=== PATIENT | male | born 1930 | race Caucasian/White ===

== ENCOUNTER 2016-12-06 10:13 | Observation (INO) | payer MEDICARE ==
[2016-12-06 10:51] LABS: Hematocrit 35 % (42-52); Hemoglobin 11.8 g/dl (14.0-18.0); Mean Corpuscular HGB Conc 33 g/dl (31-36); Mean Corpuscular Hemoglobin 33 pg (27-31); Mean Corpuscular Volume 101 fL (80-94); Mean Platelet Volume 8 um3 (7.4-10.4); Red Blood Count 3.52 10^6/ul (4.0-5.4); Red Cell Distribution Width 17 % (10.5-15); White Blood Count 7.2 10^3/ul (3.5-10.8)
[2016-12-06 11:07] LABS: BUN/Creatinine Ratio 21.3 (8-20); Calcium 8.7 mg/dL (8.6-10.3); EGFR African American 69.2 (>60); EGFR Non-African American 53.8 (>60); Potassium 4.8 mmol/L (3.5-5.0)
[2016-12-06] MEDS ORDERED: fentaNYL* 50 MCG/ML 2 ML VIAL (100 MCG VIAL) ONE (11:13)
[2016-12-06] MEDS ORDERED: nitroGLYCERIN DRIP* 250 ML ONE (11:14)
[2016-12-06] MEDS ORDERED: Heparin 2 UNITS/ML IVPREMIX* 3,000 ML IV ONE (11:14)
[2016-12-06] MEDS ORDERED: Lidocaine 1% INJ* 10 MG/ML 30 ML SDV ONE (11:14)
[2016-12-06] MEDS ORDERED: Heparin(*) 1000 UNIT/ML 10 ML VIAL CATH LAB IV ONE (11:14)
[2016-12-06] MEDS ORDERED: Midazolam* 1 MG/ML 5 ML VIAL (5 MG) ONE (11:14)
[2016-12-06] MEDS ORDERED: VERAPAMIL 2.5 MG/ML 4 ML VIAL ONE (11:14)
[2016-12-06] MEDS ORDERED: Iohexol 350 (CONTRAST) 200 ML MDV IV ONE (11:15)
[2016-12-06] MEDS ORDERED: Iodixanol* (CONTRAST) 320 MG/ML 100 ML SDV ONE ×3 (11:31→12:27)
[2016-12-06] MEDS ORDERED: Heparin 2 UNITS/ML IVPREMIX* 1,000 ML IV ONE (11:37)
[2016-12-06] MEDS ORDERED: Ticagrelor* 90 MG TAB PO ONE (12:45)
[2016-12-06] MEDS ORDERED: Aspirin Low Dose CHEW TAB* 81 MG ONE (12:45)
[2016-12-06] MEDS ORDERED: Nitroglycerin TAB 0.4 MG* 0.4 MG TAB SL PRN (12:55)
[2016-12-06] MEDS ORDERED: Acetaminophen TAB* 325 MG PO PRN (12:57)
[2016-12-06] MEDS ORDERED: NS 0.9% 1000 ML* 1,000 ML IV SCH (13:00)
[2016-12-06] MEDS ORDERED: Atorvastatin* 80 MG TAB PO SCH (17:00)
[2016-12-06] MEDS ORDERED: Clopidogrel TAB* 300 MG PO ONE (18:00)
[2016-12-07 07:02] LABS: Calcium 8.6 mg/dL (8.6-10.3); EGFR African American 69.8 (>60); EGFR Non-African American 54.3 (>60); Potassium 4.1 mmol/L (3.5-5.0)
[2016-12-07] MEDS ORDERED: Clopidogrel TAB* 75 MG PO SCH (09:00)
[2016-12-07] MEDS ORDERED: Aspirin Low Dose CHEW TAB* 81 MG PO SCH (09:00)
[2016-12-07] MEDS ORDERED: amLODIPine TAB* 5 MG PO SCH (09:00)
[2016-12-07] MEDS ORDERED: Metoprolol Succinate XL TAB* 25 MG PO SCH (09:00)
[2016-12-07 11:03] VITALS: BP 137/61
--- NOTE | 2016-12-08 06:36 | DS ---
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 PROCEDURE: Cardiac cath, stent placement by Dr. Pratt, proximal LAD. CONDITION ON DISCHARGE: Stable. DISCHARGE MEDICATIONS: Unchanged: 1. Aspirin 81 mg daily. 2. Toprol XL 25 mg daily. 3. Nitroglycerin 0.4 mg sublingual p.r.n. 4. Norvasc 2.5 mg daily. NEW MEDICATIONS: 1. Plavix 75 mg daily for a minimum of 1 year without interruption. 2. Lipitor 80 mg daily. FOLLOWUP: Wound check next week with me in the medical office building as scheduled. DIET: Low fat, low cholesterol. ACTIVITY: To avoid right hand use for the next 2 days. WOUND CARE: Shower only for 2 days. HISTORY: See outpatient H and P labs. On December 06, CBC: Hemoglobin 11.8, hematocrit 35, MCV 101. Chemistry panel: Creatinine 1.27, BUN 27. Normal electrolytes. Post PCI creatinine remained stable at 1.26 today. EKG: Pre and post PCI showed sinus bradycardia without any ischemic changes. HOSPITAL COURSE: He underwent outpatient catheterization via the right radial approach with the finding of a significant proximal LAD stenosis, which was treated with a drug-eluting stent with an excellent angiographic result. A jailed first diagonal had moderate ostial stenosis, was unchanged. Post PCI, his labs remained stable, he had no EKG changes. He is ambulatory, stable for discharge. Lipitor 80 was added because of his hyperlipidemia with LDL of 137 on August 10 with cholesterol of 198, triglycerides 86, HDL 44.2, on no statin. CRP was 2.55 at that time. He was recommended Plavix 75 mg daily for a minimum of 1 year for drug- eluting stent placement in the patient with stable coronary artery disease. [id number]/[facility] #: [id number] [facility]
== END 2016-12-07 12:45 | disposition home or self-care (01) ==
LOC: CHICATH 10:13 → ICU 12:55
PROVIDERS: ADMIT Internal Medicine Cardiovascular Disease; ATTEND Internal Medicine Cardiovascular Disease
DX: I20.9 Angina pectoris, unspecified (principal); I10 Essential (primary) hypertension; Z79.82 Long term (current) use of aspirin; E78.5 Hyperlipidemia, unspecified; N28.9 Disorder of kidney and ureter, unspecified; R94.39 Abnormal result of other cardiovascular function study
CPT/HCPCS: 36415; 80048; 85025; 93005; 93454; 96374; 96375; A9270-GY; C1725; C1769; C1876; C1887; C9600-LD; G0378; J1644; J2001; J2250; J3010

== ENCOUNTER 2016-12-28 11:38 | Day surgery (SDC) | payer MEDICARE ==
[~2016-12-28 11:38] MED LIST: Acetaminophen TAB* 325 MG PO PRN; Buffered Lidocaine 0.9% SYRIN* 5 ML/SYR SYRINGE INTRADERM ONE
[2016-12-28] MEDS ORDERED: Midazolam* 1 MG/ML 2 ML VIAL (2 MG) ONE (14:01)
[2016-12-28 14:36] VITALS: BP 131/53
[2016-12-28] MEDS ORDERED: Phenylephrine 2.5% OPTH.SOL* 2 ML BTL ONE (14:56)
[2016-12-28] MEDS ORDERED: Povidone Iodine 5% OPTH* 30 ML BTL ONE (14:56)
[2016-12-28] MEDS ORDERED: acetaZOLAMIDE TAB* 250 MG ONE (14:56)
[2016-12-28] MEDS ORDERED: Neomycin/Polymy/Dex OPTH.SUSP* MAXITROL 0.1% 5 ML ONE (14:56)
[2016-12-28] MEDS ORDERED: Cyclopentolate 1% OPTH.SOL* 2 ML BTL ONE (14:56)
[2016-12-28] MEDS ORDERED: Proparacaine 0.5% OPHTH.SOL* 15 ML BTL ONE (14:56)
[2016-12-28] MEDS ORDERED: Buffered Lidocaine 0.9% SYRIN* 5 ML/SYR SYRINGE ONE (14:56)
[2016-12-28] MEDS ORDERED: Flurbiprofen 0.03% OPTH.SOL* 2.5 ML BTL ONE (14:56)
[2016-12-28] MEDS ORDERED: Lidocaine 1% MPF* 2 ML VIAL ONE (14:56)
[2016-12-28] MEDS ORDERED: Lidocaine 1.5% EPI 1:200,000* 30 ML SDV ONE (14:57)
--- NOTE | 2016-12-29 12:18 | OP ---
DATE OF OPERATION: [facility] DATE OF : 30 SURGEON: Cong Oneal MD. PREOPERATIVE DIAGNOSIS: Cataract, right eye. POSTOPERATIVE DIAGNOSIS: Cataract, right eye. OPERATIVE PROCEDURE: Phacoemulsification, right eye with IOL. DESCRIPTION OF PROCEDURE: The patient was brought to the operating room after being given 1/2% Alcaine with epinephrine drops in the preoperative area. The eye was prepped and draped in the usual sterile fashion. Sterile drape and eyelid speculum were placed. Again, topical 1/2% Alcaine with epinephrine was given. A paracentesis incision was made at the 9 o'clock position with the No.75 blade. Clear cornea incision 2.2 x 2.2-mm was created at the 12 o'clock position starting at the anterior limbus using the 2.2-mm keratome. The anterior chamber was irrigated with 0.4 mL of 1% non-preservative intracameral lidocaine and filled with DisCoVisc. A capsulorrhexis was completed using the cystotome and the Utrata forceps. Hydrodissection was performed with balanced salt solution. The lens nucleus was removed with the Phacoemulsification handpiece without incident. Cortex was removed with the irrigation-aspiration handpiece. The capsular bag was re-inflated using DisCoVisc and an SN60WF 15.5 implant was inserted with the shooter. The irrigation-aspiration handpiece was used to remove all residual DisCoVisc. The eye was refilled with balanced salt solution and the wound checked and found to be watertight. Topical Maxitrol drops were given. [id number]/[facility] #: [id number] [facility]
== END 2016-12-28 14:47 | disposition home or self-care (01) ==
LOC: OREAST 11:38
PROVIDERS: ATTEND Specialist
DX: H25.811 Combined forms of age-related cataract, right eye (principal); H43.813 Vitreous degeneration, bilateral; Z87.891 Personal history of nicotine dependence; I10 Essential (primary) hypertension; Z95.5 Presence of coronary angioplasty implant and graft; J45.909 Unspecified asthma, uncomplicated; I25.10 Atherosclerotic heart disease of native coronary artery without angina pectoris
CPT/HCPCS: A9270-GY; J2250; V2632

== ENCOUNTER 2017-01-04 06:39 | Day surgery (SDC) | payer MEDICARE ==
[2017-01-04] MEDS ORDERED: Proparacaine 0.5% OPHTH.SOL* 15 ML BTL ONE (07:25)
[2017-01-04] MEDS ORDERED: Flurbiprofen 0.03% OPTH.SOL* 2.5 ML BTL ONE (07:25)
[2017-01-04] MEDS ORDERED: Cyclopentolate 1% OPTH.SOL* 2 ML BTL ONE (07:25)
[2017-01-04] MEDS ORDERED: acetaZOLAMIDE TAB* 250 MG ONE (07:25)
[2017-01-04] MEDS ORDERED: Buffered Lidocaine 0.9% SYRIN* 5 ML/SYR SYRINGE ONE (07:25)
[2017-01-04] MEDS ORDERED: Lidocaine 1% MPF* 2 ML VIAL ONE (07:25)
[2017-01-04] MEDS ORDERED: Povidone Iodine 5% OPTH* 30 ML BTL ONE (07:25)
[2017-01-04] MEDS ORDERED: Phenylephrine 2.5% OPTH.SOL* 2 ML BTL ONE (07:25)
[2017-01-04] MEDS ORDERED: Neomycin/Polymy/Dex OPTH.SUSP* MAXITROL 0.1% 5 ML ONE (07:25)
[2017-01-04] MEDS ORDERED: Midazolam* 1 MG/ML 5 ML VIAL (5 MG) ONE (07:47)
[2017-01-04 08:37] VITALS: BP 106/78
--- NOTE | 2017-01-04 16:02 | OP ---
DATE OF OPERATION: 01/04/17 - [facility] DATE OF : 30 SURGEON: Cong Oneal MD PREOPERATIVE DIAGNOSIS: Cataract, left eye. POSTOPERATIVE DIAGNOSIS: Cataract, left eye. OPERATIVE PROCEDURE: Phacoemulsification, left eye with IOL. DESCRIPTION OF PROCEDURE: The patient was brought to the operating room after being given 1/2% Alcaine with epinephrine drops in the preoperative area. The eye was prepped and draped in the usual sterile fashion. Sterile drape and eyelid speculum were placed. Again, topical 1/2% Alcaine with epinephrine was given. A paracentesis incision was made at the 3 o'clock position with the No.75 blade. Clear cornea incision 2.2 x 2.2-mm was created at the 6 o'clock position starting at the anterior limbus using the 2.2-mm keratome. The anterior chamber was irrigated with 0.4 mL of 1% non-preservative intracameral lidocaine and filled with DisCoVisc. A capsulorrhexis was completed using the cystotome and the Utrata forceps. Hydrodissection was performed with balanced salt solution. The lens nucleus was removed with the Phacoemulsification handpiece without incident. Cortex was removed with the irrigation-aspiration handpiece. The capsular bag was re-inflated using DisCoVisc and an SN60WF 15.5 Implant was inserted with the shooter. The irrigation-aspiration handpiece was used to remove all residual DisCoVisc. The eye was refilled with balanced salt solution and the wound checked and found to be watertight. Topical Maxitrol drops were given. [id number]/[facility] #: [id number] [facility]
== END 2017-01-04 08:47 | disposition home or self-care (01) ==
LOC: OREAST 06:39
PROVIDERS: ATTEND Specialist
DX: H25.812 Combined forms of age-related cataract, left eye (principal); H43.813 Vitreous degeneration, bilateral; I25.10 Atherosclerotic heart disease of native coronary artery without angina pectoris; I10 Essential (primary) hypertension; Z79.01 Long term (current) use of anticoagulants; Z95.5 Presence of coronary angioplasty implant and graft
CPT/HCPCS: A9270-GY; J2250; V2632

== ENCOUNTER 2019-05-11 13:41 | Emergency (ER) | payer MEDICARE ==
[2019-05-11] MEDS ORDERED: NS 0.9% 1000 ML** 1,000 ML IV ONE (13:55)
--- NOTE | 2019-05-11 13:55 | ED ---
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 He states that last night he began having headache, chest pain, SOB, and coughing with production and was not able to sleep at all. The cough has lasted for the past 3 days. These symptoms have continued until today and he rates his current pain severity an 8/10. No aggravating or alleviating factors noted. He has Hx of asthma. - History Of Current Complaint Hx Obtained From: Patient Onset/Duration: Sudden Onset, Lasting Days, Still Present Timing: Constant Severity Currently: Severe Severity Initially: Severe Location: Pain At: - chest pain Aggravating Factor(s): nothing Alleviating Factor(s): nothing Associated Signs And Symptoms: Positive: Headache, SOB, Cough, Chest Pain - Allergies/Home Medications Allergies/Adverse Reactions: Allergies Allergy/AdvReac Type Severity Reaction Status Date / Time morphine Allergy Nausea And Verified 05/11/19 13:55 Vomiting oxycodone Allergy See Comment Verified 05/11/19 13:55 PMH/Surg Hx/FS Hx/Imm Hx Endocrine/Hematology History: Reports: Hx Anemia Denies: Hx Anticoagulant Therapy, Hx Diabetes, Hx Thyroid Disease Cardiovascular History: Reports: Hx Angina, Hx Coronary Artery Disease - stent placed near the heart 11/2016, Hx Hypertension, Hx Valvular Heart Disease, Other Cardiovascular Problems/Disorders - MVP Denies: Hx Congestive Heart Failure, Hx Hypercholesterolemia Respiratory History: Reports: Hx Asthma, Hx Pulmonary Embolism Denies: Hx Chronic Obstructive Pulmonary Disease (COPD) GI History: Reports: Hx Diverticulosis, Hx Gastroesophageal Reflux Disease, Other GI Disorders - hernia Denies: Hx Ulcer History: Reports: Hx Benign Prostatic Hyperplasia, Other Problems/ Disorders - present hx diverticulitis Musculoskeletal History: Reports: 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, Hx Back Problems, Other Musculoskeletal History - hip replacement to right hip Denies: Hx Gout Sensory History: Reports: Hx Cataracts, Hx Contacts or Glasses, Hx Vision Problem, Hx Hearing Problem Denies: Hx Hearing Aid Opthamlomology History: Reports: Hx Cataracts, Hx Contacts or Glasses, Hx Vision Problem Neurological History: Reports: Other Neuro Impairments/Disorders - POOR HISTORIAN Denies: Hx Migraine, Hx Nerve Disease, Hx Seizures Psychiatric History: Denies: Hx Anxiety, Hx Depression, Hx Suicide Attempt, Hx Substance Abuse - Surgical History Surgery Procedure, Year, and Place: Hip replacement to right hip; hernia repair Hx Anesthesia Reactions: No Infectious Disease History: Denies: Hx Clostridium Difficile, Hx Hepatitis, Hx Human Immunodeficiency Virus (HIV), Hx of Known/Suspected MRSA, Hx Shingles, Hx Tuberculosis - Family History Known Family History: Negative: Renal Disease - Social History Alcohol Use: None Substance Use Type: Reports: None Smoking Status (MU): Never Smoked Tobacco Amount Used/How Often: 1PPD 6 YRS Have You Smoked in the Last Year: No Review of Systems Positive: Chest Pain Positive: Shortness Of Breath, Cough Positive: Headache All Other Systems Reviewed And Are Negative: Yes Physical Exam - Summary Physical Exam Summary: Constitutional: Well-developed, Well-nourished, Alert. (-) Distressed Skin: Warm, Dry HENT: Normocephalic; Atraumatic Eyes: Conjunctiva normal Neck: Musculoskeletal ROM normal neck. (-) JVD, (-) Stridor, (-) Tracheal deviation Cardio: Rhythm regular, rate normal, Heart sounds normal; Intact distal pulses; The pedal pulses are 2+ and symmetric. Radial pulses are 2+ and symmetric. (-) Murmur Pulmonary/Chest wall: Lungs clear to auscultation bilaterally, Effort normal. (- ) Respiratory distress, (-) Wheezes, (-) Rales Abd: Soft, (-) tenderness, (-) Distension, (-) Guarding, (-) Rebound Musculoskeletal: (-) Edema Lymph: (-) Cervical adenopathy Neuro: Alert, Oriented x3, GCS = 15 (see scale) Psych: Mood and affect Normal Triage Information Reviewed: Yes Vital Signs Reviewed: Yes - Miroslava Coma Scale Best Eye Response: 4 - Spontaneous Best Motor Response: 6 - Obeys Commands Best Verbal Response: 5 - Oriented Coma Scale Total: 15 Procedures - Sedation Patient Received Moderate/Deep Sedation with Procedure: No Diagnostics - Laboratory Result Diagrams: 05/11/19 14:10 05/11/19 14:10 Lab Statement: Any lab studies that have been ordered have been reviewed, and results considered in the medical decision making process. - Radiology CXR Radiology Interpretation Completed By: Radiologist Summary of Radiographic Findings: Impression: No active cardiopulmonary process by radiograph. ED physician has reviewed this report. - CT Brain CT CT Interpretation Completed By: Radiologist Summary of CT Findings: IMPRESSION: 1. No acute intracranial normality. 2. Mild cerebral volume loss. 3. Mild chronic small vessel ischemic disease is likely. ED Physician has reviewed this report. 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 He states that last night he began having headache, chest pain, SOB, and coughing with production and was not able to sleep at all. The cough has lasted for the past 3 days. Test results normal except for WBC 15.2, RBC 3.64, Hgb 11.9, Hct 36, MCV 99, MCH 33, RDW 16, Absolute Neuts 10.7, BUN 32, Creatinine 1.34, BUN/Creatinine 23.9, AST 11, Alkaline Phosphatase 109, BNP 124. CXR reveals: no active cardiopulmonary process by radiograph. Brain CT reveals:1. No acute intracranial normality. 2. Mild cerebral volume loss. 3. Mild chronic small vessel ischemic disease is likely. Final Dx are acute bronchitis and headache. The pt will be discharged home with PCP follow up. Pt is agreeable with this plan. - Diagnoses Provider Diagnoses: Headache, Acute bronchitis Discharge ED - Sign-Out/Discharge Documenting (check all that apply): Patient Departure - discharge - Discharge Plan Condition: Stable Disposition: HOME Prescriptions: DOXYcycline CAP(*) [DOXYcycline 100MG CAP(*)] 100 mg PO BID #10 cap Patient Education Materials: Acute Bronchitis (ED), Acute Headache (ED) Referrals: Liz Lopez NP [Primary Care Provider] - 3 Days Additional Instructions: Please follow up with your primary care provider within 3 days. Please return to the ED for any new or worsening symptoms. - Billing Disposition and Condition Condition: STABLE Disposition: Home - Attestation Statements Document Initiated by Shameka: Yes Documenting Scribe: Milton Liu Provider For Whom Shameka is Documenting (Include Credential): Odilon Givens DO Scribe Attestation: Milton Wen, scribed for Odilon Givens DO on 05/11/19 at 1820. Scribe Documentation Reviewed: Yes Provider Attestation: The documentation as recorded by the Milton gilliland accurately reflects the service I personally performed and the decisions made by me, Odilon Givens, DO Status of Shameka Document: Viewed
[2019-05-11 14:22] LABS: ABS Eosinophils 0.2 10^3/ul (0-0.6); ABS Lymphocytes 3.8 10^3/ul (1.0-4.8); ABS Monocytes 0.6 10^3/ul (0-0.8); ABS Neutrophils 10.7 10^3/ul (1.5-7.7); Eosinophil % 1.1 %; Hematocrit 36 % (42-52); Hemoglobin 11.9 g/dL (14.0-18.0); Lymphocyte % 24.9 %; Mean Corpuscular HGB Conc 33 g/dL (31-36); Mean Corpuscular Hemoglobin 33 pg (27-31); Mean Corpuscular Volume 99 fL (80-94); Mean Platelet Volume 8.2 fL (7.4-10.4); Platelet Count 235 10^3/uL (150-450); Red Blood Count 3.64 10^6 /uL (4.18-5.48); Red Cell Distribution Width 16 % (10-15); White Blood Count 15.2 10^3/uL (3.5-10.8)
[2019-05-11 14:32] LABS: INR 1.05 (0.82-1.09)
[2019-05-11 14:39] LABS: Albumin 4.4 g/dL (3.2-5.2); Albumin/Globulin Ratio 1.5 (1-3); BUN/Creatinine Ratio 23.9 (8-20); Calcium 9.5 mg/dL (8.6-10.3); EGFR African American 60.7 (>60); EGFR Non-African American 50.2 (>60); Potassium 4.1 mmol/L (3.5-5.0); Total Bilirubin 0.5 mg/dL (0.2-1.0); Total Protein 7.4 g/dL (6.4-8.9)
[2019-05-11] MEDS ORDERED: cefTRIAXone(*) 1 GM in NS 0.9% 50 ML* 50 ML IVPB ONE (14:55)
[2019-05-11] MEDS ORDERED: Azithromycin 500 mg/250 ml NS 500 MG/250 ML BAG IVPB ONE (15:55)
[2019-05-11] MEDS ORDERED: NS 0.9% 500 ML* 500 ML IV ONE (15:55)
[2019-05-11] MEDS ORDERED: Acetaminophen TAB* 325 MG PO ONE (15:55)
[2019-05-11 17:38] LABS: Influenza A Molecular NEGATIVE (Negative); Influenza B Molecular NEGATIVE (Negative)
[2019-05-11 19:47] VITALS: BP 119/58
--- NOTE | 2019-05-11 19:51 | CONS ---
CC: Dr. Ramirez * HOSPITAL MEDICINE CONSULTATION REPORT: DATE OF CONSULTATION: 05/11/19 PRIMARY CARE PHYSICIAN: Dr. Ramirez. ATTENDING PHYSICIAN: Catherine Noble MD (dictation provided by Silvia Sanchez NP). REASON FOR CONSULTATION: Question regarding need for admission. HISTORY OF PRESENT ILLNESS: Mr. Steel is an 89-year-old male with a past medical history of hypertension, GERD, and BPH, who presented today to the hospital with concern for cough and weakness. Mr. Steel states he was in his normal state of health and doing quite well up until last evening; at that point, he developed a constant, nagging, productive cough. He was awake through most of the night coughing. He states he only has chest discomfort with a harsh cough, none otherwise. He notes that after this difficult night, he was very weak today. He is able to get up and move around with a little bit of assistance and ultimately he came to emergency room due to weakness. He states otherwise he has been doing well. He has had no nausea, vomiting, diarrhea, or abdominal pain. He did report a mild headache. He does not believe he had a fever. In the emergency room, Mr. Steel was found to have a chest x-ray that showed no acute process. He had labs that showed mildly elevated white blood cell count of 15.2. He has a slight anemia, which is at baseline. BUN and creatinine are slightly elevated at baseline. Flu swab is pending. His vital signs showed that he is not hypoxic and his O2 saturation is 97% on room air. Blood pressure is 108/66. He is afebrile. This workup was discussed with the patient and his ex- with whom he lives. There was initial concern that the patient will not have any support at home and therefore Hospital Medicine was called regarding admission. PAST MEDICAL HISTORY: 1. Left total hip replacement. 2. Right total hip replacement. 3. BPH. 4. Iron deficiency anemia. 5. Hypertension. 6. GERD. 7. CKD. MEDICATIONS: Outpatient are: 1. Metoprolol 25 mg p.o. q.a.m. 2. Nitroglycerin p.r.n. 3. Multivitamin daily. 4. Aspirin 81 mg p.o. every other day. ALLERGIES: MORPHINE and OXYCODONE. FAMILY HISTORY: The patient reports his mother had cancer and in her 60s. His dad lived into his 90s and of old age. SOCIAL HISTORY: The patient smoked very briefly when he was younger. No report of alcohol or drug use. He lives with his ex-, Debra, who is the healthcare proxy. He also lives there with the support of his son who is 19. REVIEW OF SYSTEMS: A 14-point review of systems was completed with Mr. Steel and all those not mentioned above were negative. PHYSICAL EXAMINATION: Vital Signs: Temperature 99, pulse rate 91, respiratory rate 22, O2 saturation 97% on room air, blood pressure 108/66. General: Mr. Steel is sitting up in the bed, in no acute distress. Neuro: He is alert. He is oriented x3. He moves all extremities equally. There is no facial asymmetry or focal weakness. Extraocular movements are intact. Heart: S1, S2. No murmur, rub, or gallop and regular. Lungs: Showed some very faint wheezes bilaterally. There is no accessory muscle use. There is good aeration. The abdomen is soft, nontender with bowel sounds positive x4. Extremities: No cyanosis or edema. Skin is intact. LABORATORY DATA/DIAGNOSTIC STUDIES: WBC 15.2, hemoglobin 11.9, hematocrit 36, and platelet count 235. INR 1.05. Sodium 136, potassium 4.1, chloride 104, serum bicarbonate 22, BUN 32, creatinine 1.34, and glucose 95. Troponin 0.00. BNP 124. Flu swab is pending. Chest x-ray shows no acute intrathoracic process. Brain CT shows no acute intracranial process. EKG shows sinus rhythm with no evidence of ischemia. ASSESSMENT: Mr. Steel is an 89-year-old male with past medical history of BPH, hypertension, and GERD, who presented today to the hospital with concern for acute onset of cough overnight, now with weakness. He has been evaluated in the emergency room and his workup is only positive for mild leukocytosis. I suspected that his symptoms are due to bronchitis. This was reviewed by myself with the patient. He states he does feel comfortable going home. He feels that he has adequate support from his ex- and son. I have called Debra, his ex-, and she reports that she will be pick him up at 10:30 today and that she would prefer to take him home this evening. This was all reviewed with Dr. Sewell, the emergency room physician and he feels comfortable that based on the conversation with the patient and the patient's family feel that he is adequately supported to return home and treatment of the bronchitis. Dr. Sewell will be providing him with routine medication per his practice. I recommend that he consider prescribing his azithromycin, prednisone, and perhaps an albuterol inhaler for Mr. Steel until he can follow up with Dr. Ramirez, his primary care physician. TIME SPENT: Approximately 60 minutes was spent in the consultation of this patient, more than half the time was spent with him at the bedside reviewing the events leading up to this hospitalization, speaking with this on the phone, and reviewing the plan of care. SILVIA SANCHEZ NP [id number]/[facility] #: [id number] [facility]
== END 2019-05-11 17:38 | disposition home or self-care (01) ==
LOC: ED 13:41
DX: J20.9 Acute bronchitis, unspecified (principal); R51 Headache; I25.10 Atherosclerotic heart disease of native coronary artery without angina pectoris; I12.9 Hypertensive chronic kidney disease with stage 1 through stage 4 chronic kidney disease, or unspecified chronic kidney disease; N18.9 Chronic kidney disease, unspecified; D63.1 Anemia in chronic kidney disease; N40.0 Benign prostatic hyperplasia without lower urinary tract symptoms; K21.9 Gastro-esophageal reflux disease without esophagitis; Z79.82 Long term (current) use of aspirin; Z79.899 Other long term (current) drug therapy; Z95.5 Presence of coronary angioplasty implant and graft; Z88.5 Allergy status to narcotic agent; Z96.643 Presence of artificial hip joint, bilateral
CPT/HCPCS: 36415; 70450; 71045; 80053; 83605; 83880; 84484; 85025; 85610; 85730; 87040; 93005; 96361; 96365; 96375; 99284; A9270-GY; J0456; J0696